=== PATIENT | male | born 1940 | race Two or more races ===

== ENCOUNTER 2023-02-27 12:34 | Inpatient (IN) | payer OTHER ==
[2023-02-27] MEDS ORDERED: ACETAMINOPHEN 325 MG TABLET (FP) PO ONE (12:53)
[2023-02-27] MEDS ORDERED: ACETAMINOPHEN 1000 MG/100 ML BAG IVPB ONE (12:59)
[2023-02-27] MEDS ORDERED: ACETAMINOPHEN INJECTION 100 ML IVPB ONE ×2 (13:06→13:30)
[2023-02-27] MEDS ORDERED: SODIUM CHLORIDE 0.9% 500 ML INFUS.BAG IV ONE (14:18)
[2023-02-27 14:31] LABS: BASO % 0.1 % (0-2.0); EOS % 0.9 % (0-4.5); HEMATOCRIT 44.3 % (35.4-49); HEMOGLOBIN 14.8 GM/dL (11.7-16.9); LYMPH % 4.8 % (8-40); MCH 27.7 pg (25.7-33.7); MCHC 33.3 g/dl (32.0-35.9); MEAN PLT VOLUME 10.3 fl (7.5-11.1); MONO % 13.3 % (3.8-10.2); NEUT % 80.9 % (42.8-82.8); PLATELET COUNT 152 10^3/uL (134-434); RBC 5.34 M/mm3 (4.00-5.60); WHITE BLOOD COUNT 8.8 K/mm3 (4.0-10.0)
[2023-02-27 15:15] LABS: POTASSIUM 4.1 mmol/L (3.5-5.1)
[2023-02-27 15:17] LABS: CALCIUM 9.2 mg/dL (8.5-10.1)
[2023-02-27 15:18] LABS: ALBUMIN 3.6 g/dl (3.4-5.0); BLOOD UREA NITROGEN 23.5 mg/dL (7-18); MAGNESIUM 2.1 mg/dL (1.8-2.4)
[2023-02-27 15:21] LABS: CREATININE 1.8 mg/dL (0.55-1.3)
[2023-02-27 15:22] LABS: BILIRUBIN,TOTAL 0.5 mg/dL (0.2-1)
[2023-02-27 15:24] LABS: TOT PROT 7.9 g/dl (6.4-8.2)
[2023-02-27 15:29] LABS: EPI CELLS 1 /uL (0-25.1); HYALINE CASTS 0 /uL (0-3.1); URINE APPEARANCE CLEAR; URINE BACTERIA 1 /uL (0-1359); URINE BILIRUBIN NEGATIVE (NEGATIVE); URINE COLOR YELLOW; URINE GLUCOSE (UA) 3+ (NEGATIVE); URINE KETONE NEGATIVE (NEGATIVE); URINE LEUK ESTERASE NEGATIVE (NEGATIVE); URINE NITRITE NEGATIVE (NEGATIVE); URINE PROTEIN NEGATIVE (NEGATIVE); URINE RBC 4 /uL (0-23.9); URINE UROBILINOGEN 0.2 mg/dL (0.2-1.0); URINE WBC 1 /uL (0-25.8)
[2023-02-27] MEDS ORDERED: ACETAMINOPHEN 325 MG TABLET (FP) PO PRN (17:28)
[2023-02-27] MEDS ORDERED: SODIUM CHLORIDE 1,000 ML IV SCH (18:15)
[2023-02-27] MEDS: HEPARIN NA (PORCINE) 5,000 UNITS/ML 1ML VIAL SQ SCH (23:36)
[2023-02-27] MEDS: INSULIN SLIDING SCALE (NOVOLOG) 1 VIAL SQ SCH (23:38)
[2023-02-28 00:02] VITALS: BMI 24.4
[2023-02-28] MEDS: HEPARIN NA (PORCINE) 5,000 UNITS/ML 1ML VIAL SQ SCH ×3 (05:52→21:53)
[2023-02-28] MEDS: guaiFENesin/D-M SUGAR-FREE/ACLHOL-FREE (200 MG/10 MG) 5 ML PO PRN ×2 (05:52→17:39)
[2023-02-28] MEDS: INSULIN SLIDING SCALE (NOVOLOG) 1 VIAL SQ SCH ×4 (05:59→21:53)
[2023-02-28 09:41] LABS: BASO % 0.3 % (0-2.0); EOS % 0.4 % (0-4.5); HEMATOCRIT 45.1 % (35.4-49); LYMPH % 17.8 % (8-40); MCH 27.8 pg (25.7-33.7); MCHC 33.2 g/dl (32.0-35.9); MEAN CELL VOLUME 83.8 fl (80-96); MEAN PLT VOLUME 10.1 fl (7.5-11.1); MONO % 18.9 % (3.8-10.2); NEUT % 62.6 % (42.8-82.8); PLATELET COUNT 143 10^3/uL (134-434); RBC 5.38 M/mm3 (4.00-5.60); RDW 13.6 % (11.9-15.9); WHITE BLOOD COUNT 8.1 K/mm3 (4.0-10.0)
[2023-02-28 10:00] LABS: POTASSIUM 4.1 mmol/L (3.5-5.1)
[2023-02-28 10:06] LABS: CALCIUM 9.2 mg/dL (8.5-10.1)
[2023-02-28 10:07] LABS: ALBUMIN 3.4 g/dl (3.4-5.0)
[2023-02-28] MEDS: TAMSULOSIN HCL 0.4 MG CAP PO SCH (10:07)
[2023-02-28 10:08] LABS: MAGNESIUM 2.2 mg/dL (1.8-2.4)
[2023-02-28 10:10] LABS: CREATININE 1.6 mg/dL (0.55-1.3); PHOSPHOROUS 3.4 mg/dL (2.5-4.9)
[2023-02-28 10:14] LABS: BILIRUBIN,TOTAL 0.6 mg/dL (0.2-1); TOT PROT 7.8 g/dl (6.4-8.2)
[2023-02-28] MEDS ORDERED: INSULIN (NOVOLOG) ASPART 100 UNITS/ML 10ML VIAL ONE ×2 (11:51→21:08)
[2023-02-28] MEDS ORDERED: REMDESIVIR 200 MG in SODIUM CHLORIDE 250 ML IVPB ONE (14:30)
[2023-02-28] MEDS ORDERED: SODIUM CHLORIDE 1,000 ML IV SCH (16:15)
[2023-02-28] MEDS: ROSUVASTATIN CA 10 MG TABLET PO SCH (21:53)
[2023-03-01] MEDS: INSULIN SLIDING SCALE (NOVOLOG) 1 VIAL SQ SCH ×4 (06:10→21:39)
[2023-03-01] MEDS: HEPARIN NA (PORCINE) 5,000 UNITS/ML 1ML VIAL SQ SCH ×3 (06:10→21:35)
[2023-03-01] MEDS ORDERED: INSULIN (NOVOLOG) ASPART 100 UNITS/ML 10ML VIAL ONE (06:39)
[2023-03-01 09:50] LABS: HEMATOCRIT 42.3 % (35.4-49); HEMOGLOBIN 14.1 GM/dL (11.7-16.9); MCH 27.7 pg (25.7-33.7); MCHC 33.3 g/dl (32.0-35.9); MEAN CELL VOLUME 83.1 fl (80-96); PLATELET COUNT 114 10^3/uL (134-434); RBC 5.09 M/mm3 (4.00-5.60); RDW 13.9 % (11.9-15.9); WHITE BLOOD COUNT 5.1 K/mm3 (4.0-10.0)
[2023-03-01 09:53] LABS: CALCIUM 8.2 mg/dL (8.5-10.1)
[2023-03-01 09:54] LABS: ALBUMIN 2.7 g/dl (3.4-5.0); BLOOD UREA NITROGEN 21.6 mg/dL (7-18)
[2023-03-01 09:56] LABS: ERYTHROCYTE SEDIMENTATION RATE 16 mm/hr (0-20)
[2023-03-01 09:57] LABS: CREATININE 1.3 mg/dL (0.55-1.3); PHOSPHOROUS 2.6 mg/dL (2.5-4.9)
[2023-03-01 09:58] LABS: BILIRUBIN,TOTAL 0.3 mg/dL (0.2-1)
[2023-03-01 09:59] LABS: TOT PROT 6.6 g/dl (6.4-8.2)
[2023-03-01] MEDS: TAMSULOSIN HCL 0.4 MG CAP PO SCH (10:43)
[2023-03-01] MEDS: REMDESIVIR 100 MG in SODIUM CHLORIDE 250 ML IVPB SCH (10:44)
[2023-03-01 11:48] LABS: ANISOCYTOSIS 0; MACROCYTOSIS 0
[2023-03-01] MEDS: ROSUVASTATIN CA 10 MG TABLET PO SCH (21:35)
[2023-03-02] MEDS: HEPARIN NA (PORCINE) 5,000 UNITS/ML 1ML VIAL SQ SCH ×2 (06:29→13:12)
[2023-03-02] MEDS: INSULIN SLIDING SCALE (NOVOLOG) 1 VIAL SQ SCH ×2 (06:33→11:44)
[2023-03-02] MEDS ORDERED: TAMSULOSIN HCL 0.4 MG CAP PO SCH (08:30)
[2023-03-02 10:00] LABS: POTASSIUM 4.5 mmol/L (3.5-5.1)
[2023-03-02 10:03] LABS: CALCIUM 8.3 mg/dL (8.5-10.1)
[2023-03-02 10:04] LABS: ALBUMIN 2.9 g/dl (3.4-5.0); BLOOD UREA NITROGEN 17.9 mg/dL (7-18)
[2023-03-02 10:07] LABS: CREATININE 1.1 mg/dL (0.55-1.3)
[2023-03-02 10:09] LABS: BILIRUBIN,TOTAL 0.4 mg/dL (0.2-1); TOT PROT 6.8 g/dl (6.4-8.2)
[2023-03-02] MEDS: REMDESIVIR 100 MG in SODIUM CHLORIDE 250 ML IVPB SCH (10:32)
[2023-03-02 14:31] VITALS: BP 151/90; PULSE 67; RESP 20; TEMP 97.6
== END 2023-03-02 17:23 | disposition home health service (06) | DRG 178 ==
LOC: JER 12:34 → INTOOBSV 16:35 → JERBED 16:35 → UNDOADMOB 16:35 → JERBED 17:26 → J6S 23:23 → OBSVTOIN 02-28 13:51
PROVIDERS: ADMIT Internal Medicine; ATTEND Internal Medicine
PROC: XW033E5 Introduction of Remdesivir Anti-infective into Peripheral Vein, Percutaneous Approach, New Technology Group 5 (ICD-10-PCS; principal; 2023-02-28)
DX: U07.1 COVID-19 (principal); I13.0 Hypertensive heart and chronic kidney disease with heart failure and stage 1 through stage 4 chronic kidney disease, or unspecified chronic kidney disease; E78.5 Hyperlipidemia, unspecified; I50.9 Heart failure, unspecified; N40.0 Benign prostatic hyperplasia without lower urinary tract symptoms; E11.65 Type 2 diabetes mellitus with hyperglycemia; E11.22 Type 2 diabetes mellitus with diabetic chronic kidney disease; N18.9 Chronic kidney disease, unspecified; E86.1 Hypovolemia; Z79.84 Long term (current) use of oral hypoglycemic drugs
CPT/HCPCS: 0241U-QW; 36415; 71045-TC-FY; 80053; 81003; 82550; 82553; 82962; 83036; 83605; 83735; 83970; 84100; 85025; 85651; 86140; 87040; 87086; 93005; 93010; 93970-TC; 97116-GP; 97161-GP; 99285-25; C9399; G0378; J1644

== ENCOUNTER 2024-03-11 12:27 | Emergency (ER) | payer BC, OTHER ==
[2024-03-11 12:35] VITALS: BP 115/51; PULSE 64; RESP 18; TEMP 98.5; BMI 27.1
[2024-03-11] MEDS ORDERED: FLUORESCEIN NA 1 EA STRIP ONE (13:53)
[2024-03-11] MEDS ORDERED: TETRACAINE 0.5% OPHTH SOLN 2 ML BOTTLE ONE (13:53)
[2024-03-11] MEDS ORDERED: LIDOCAINE 4% PATCH TP ONE (13:54)
[2024-03-11] MEDS ORDERED: ACETAMINOPHEN 325 MG TABLET (FP) ONE (13:54)
[2024-03-11] MEDS: FLUORESCEIN NA 1 EA STRIP OU ONE (14:06)
[2024-03-11] MEDS: TETRACAINE 0.5% HCL 0.6ML DROPPER.BOTTLE OS ONE (14:06)
[2024-03-11] MEDS: LIDOCAINE 5% TOPICAL PATCH TP ONE (14:10)
[2024-03-11] MEDS: ACETAMINOPHEN 325 MG TABLET (FP) PO ONE (14:10)
[2024-03-11 16:56] LABS: BASO % 0.2 % (0-2.0); EOS % 1.2 % (0-4.5); HEMATOCRIT 45.9 % (35.4-49); HEMOGLOBIN 15.2 GM/dL (11.7-16.9); LYMPH % 21.8 % (8-40); MCH 28.5 pg (25.7-33.7); MCHC 33.2 g/dl (32.0-35.9); MEAN PLT VOLUME 9.8 fl (7.5-11.1); MONO % 10.6 % (3.8-10.2); NEUT % 66.2 % (42.8-82.8); PLATELET COUNT 142 10^3/uL (134-434); RBC 5.33 M/mm3 (4.00-5.60); RDW 13.9 % (11.9-15.9); WHITE BLOOD COUNT 8.7 K/mm3 (4.0-10.0)
[2024-03-11 17:15] LABS: POTASSIUM 4.1 mmol/L (3.5-5.1)
[2024-03-11 17:18] LABS: CALCIUM 9.2 mg/dL (8.5-10.1)
[2024-03-11 17:19] LABS: BLOOD UREA NITROGEN 32.6 mg/dL (7-18)
[2024-03-11 17:22] LABS: CREATININE 1.3 mg/dL (0.55-1.3)
[2024-03-11 17:23] LABS: BILIRUBIN,TOTAL 0.3 mg/dL (0.2-1); TOT PROT 8.2 g/dl (6.4-8.2)
[2024-03-11] MEDS ORDERED: LIDOCAINE PATCH REMOVAL MC SCH (22:00)
== END 2024-03-11 17:41 | disposition home or self-care (01) ==
LOC: JER 12:27
DX: R42 Dizziness and giddiness (principal); R51.9 Headache, unspecified; M54.2 Cervicalgia; V43.52XA Car driver injured in collision with other type car in traffic accident, initial encounter
CPT/HCPCS: 36415; 70450-TC; 71046-TC-FY; 80053; 84484; 85025; 93005; 93010; 99285-25